=== PATIENT | female | born 1985 | race Caucasian/White ===

== ENCOUNTER 2017-08-25 12:36 | Emergency (ER) | payer OTHER ==
[~2017-08-25] VITALS: Ht 167.6 cm; Wt 76.0 kg
[2017-08-25 12:40] VITALS: BP 121/64; PULSE 93; RESP 16; TEMP 97.9; O2SAT 100
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
[2017-08-25] MEDS ORDERED: IBUPROFEN 800 MG TAB PO ONE (14:45)
[2017-08-25] MEDS ORDERED: METHOCARBAMOL 500 MG TAB PO ONE (14:45)
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
[2017-08-25] MEDS ORDERED: ROBA750T PO (15:11)
== END 2017-08-25 15:25 | disposition home or self-care (01) ==
LOC: PHEFT 12:36
DX: S16.1XXA Strain of muscle, fascia and tendon at neck level, initial encounter (principal); R07.89 Other chest pain; R51 Headache; V53.5XXA Driver of pick-up truck or van injured in collision with car, pick-up truck or van in traffic accident, initial encounter; Y92.410 Unspecified street and highway as the place of occurrence of the external cause
CPT/HCPCS: 71045; 72125; 99283; L0150